=== PATIENT | female | born 1995 | race Caucasian/White ===

== ENCOUNTER 2018-04-24 07:39 | Emergency (ER) | payer BC ==
--- NOTE | 2018-04-24 07:43 | ED Physician Documentation ---
General Adult - HISTORIAN Historian: patient - HPI Stated Complaint: fever since 5 am Chief Complaint: Fever Onset: hours (2) Timing: better Severity: mild Further Comments: yes (fever started at 5 am - with OTC meds did have improvement in fever. No other complaints currently. Fatigue and headache) - ROS CONST: fever, weakness CVS/RESP: denies: shortness of breath, cough GI/: denies: vomiting, nausea MS/SKIN/LYMPH: denies: rash NEURO/PSYCH: denies: headache - PAST HX Past History: none Surgeries/Procedures: other (spleenectomy ) Immunizations: UTD Allergies/Adverse Reactions: Allergies Allergy/AdvReac Type Severity Reaction Status Date / Time No Known Allergies Allergy Verified 04/24/18 07:57 Home Medications: Ambulatory Orders Medication Instructions Recorded NK 04/24/18 - SOCIAL HX Smoking History: non-smoker Alcohol Use: none Drug Use: none - FAMILY HX Family History: No - VITAL SIGNS Vital Signs: Vital Signs Temp Pulse Resp BP Pulse Ox 108/60 05/17/15 16:17 - REVIEWED ASSESSMENTS Nursing Assessment Reviewed: Yes Vitals Reviewed: Yes General Adult Physical Exam - PHYSICAL EXAM GENERAL APPEARANCE: no distress EENT: eye inspection normal, no signs of dehydration NECK: normal inspection RESPIRATORY: no resp distress, chest non-tender, breath sounds normal CVS: reg rate & rhythm, heart sounds normal, equal pulses ABDOMEN: soft, normal bowel sounds, no distension BACK: normal inspection SKIN: warm/dry, normal color EXTREMITIES: non-tender, normal range of motion, no evidence of injury NEURO: oriented X3, CN's nml as tested Discharge Clincal Impression: Fever Qualifiers: Fever type: unspecified Qualified Code(s): R50.9 - Fever, unspecified Referrals: Primary Doctor,No [Primary Care Provider] - 2 Days Comments: 1. Continue OTC meds as directed for fever 2. Increase fluids 3. rest your body 4. No work until fever free for 24 hours 5. See PCP if no improvement in 2-4 days 6. Return to ER for any concerns Condition: Stable Disposition: 01 HOME, SELF-CARE Decision to Admit: NO Date of Decison to Admit: 04/24/18 Decision Time: 08:22
[2018-04-24 08:03] VITALS: BP 116/66
== END 2018-04-24 08:26 | disposition home or self-care (01) ==
LOC: ED 07:39
DX: R50.9 Fever, unspecified (principal)
CPT/HCPCS: 87400; 99282; 99283